=== PATIENT | male | born 2000 | race Two or more races ===

== ENCOUNTER 2024-12-31 17:23 | Emergency (ER) | payer OTHER ==
[~2024-12-31] VITALS: Ht 162.6 cm; Wt 56.7 kg
[2024-12-31] MEDS ORDERED: CEFTRIAXONE SODIUM 1,000 MG VIAL IV ONE (17:45)
[2024-12-31] MEDS ORDERED: 0.9 % SODIUM CHLORIDE 1,000 ML IV ONE (17:45)
[2024-12-31] MEDS ORDERED: KETOROLAC TROMETHAMINE 30 MG VIAL IV ONE (17:45)
[2024-12-31] MEDS ORDERED: KETOROLAC TROMETHAMINE 30 MG VIAL ONE ×2 (17:51→18:14)
[2024-12-31] MEDS ORDERED: CEFTRIAXONE SODIUM 1,000 MG VIAL ONE (17:52)
[2024-12-31 18:21] LABS: BASO % 0.5 % (0.1-1.2); EOS # 0.10 (0.04-0.54); EOS % 1.2 % (0.7-7.0); LYMPH # 1.84 (1.18-3.74); LYMPH % 22.0 % (19.3-53.1); MEAN PLATELET VOLUME 9.00 fl (9.4-12.4); MONO # 0.61 (0.24-0.82); MONO % 7.3 % (4.7-12.5); NEUT # 5.74 (1.56-6.13); NEUT % 68.6 % (34.0-71.1); RED CELL DISTRIBUTION WIDTH 12.3 % (11.6-14.4)
[2024-12-31 18:45] LABS: INR 1.05
[2024-12-31 18:47] LABS: URINE APPEARANCE Cloudy; URINE BILIRRUBIN Negative (NEGATIVE); URINE BLOOD Negative; URINE COLOR Yellow; URINE GLUCOSE Negative (NEGATIVE); URINE KETONE Trace (NEGATIVE); URINE LEUKOCYTE Negative; URINE NITRATE Negative; URINE PROTEIN Trace (NEGATIVE); URINE UROBILINOGEN 0.2 E.U./dl
[2024-12-31 18:51] LABS: URINE BACTERIA 7.2 uL (0.0-1933); URINE WBC 13.3 uL (0.0-23.2)
[2024-12-31 18:51] LABS: ALT/SGPT 36.0 U/L (12-78); AST/SGOT 21.0 U/L (15-37); BILIRUBIN TOTAL 0.43 mg/dL (0.3-1.2); BUN CREA RATIO 13.0 (7.0-25.0); CREATININE SERUM 1.07 mg/dL (0.70-1.30); GFR 83.54; GLOBULINA 2.8 G/DL (2.4-3.5); GLUCOSE FASTING 97.0 mg/dL (65-100); OSMOLALITY SERUM 287.0 MOSM/KG (275-295)
[2024-12-31 19:02] LABS: URINE CAST 0.00 uL (0.0-1.40); URINE EPITHELIAL CELLS 0.1 uL (0.0-38.8); URINE RBC 1.0 uL (0.0-20.8)
[2024-12-31] MEDS ORDERED: NORFLEX100MG PO (20:46)
== END 2024-12-31 21:29 | disposition home or self-care (01) ==
LOC: ER 18:03
PROVIDERS: General Practice
DX: R10.30 Lower abdominal pain, unspecified (principal); K21.9 Gastro-esophageal reflux disease without esophagitis